=== PATIENT | male | born 2000 | race Caucasian/White ===

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

== ENCOUNTER 2021-12-20 14:43 | Emergency (ER) | payer OTHER ==
[2021-12-20 14:53] VITALS: BP 154/75
[2021-12-20] MEDS ORDERED: KETOROLAC 30 MG/ML VIAL IM STA (15:03)
--- NOTE | 2021-12-20 15:06 | ED Physician Documentation ---
History of Present Illness - Stated complaint Stated Complaint: TWISTED ANKLE - Additonal information Additional information: 21-year-old male presents emergency department for evaluation of acute left ankle injury. He was playing football and went for a large jump. When he lola ded he inverted the ankle. He tried to stand on it but reports that it buckled. No history of previous injury to this ankle or leg. Denies any pertinent past medical history. Review of Systems Constitutional: denies: Fever, Chills Throat: reports: Reviewed and negative Cardiac: reports: Reviewed and negative Respiratory: reports: Reviewed and negative : reports: Reviewed and negative Skin: reports: Reviewed and negative Musculoskeletal: reports: Joint pain PD PAST MEDICAL HISTORY - Past Medical History Endocrine/Autoimmune: None : None - Present Medications Home Medications: Ambulatory Orders Medication Instructions Recorded Confirmed Doxycycline Hyclate 100 mg PO BID #20 capsule 12/29/18 - Allergies Allergies/Adverse Reactions: Allergies Allergy/AdvReac Type Severity Reaction Status Date / Time No Known Drug Allergies Allergy Verified 12/29/18 16:35 PD ED PE EXPANDED - General General: Alert, No acute distress, Well developed/nourished - Extremities Extremities: Left ankle (Significant soft tissue swelling surrounding the lateral malleolus. Normal Achilles. No medial tenderness. Reduced range of motion dorsi and plantar flexion secondary to pain and swelling.) Results - Vitals Vitals: Vital Signs - 24 hr 12/20/21 14:49 Temperature 37.2 C Heart Rate 108 H Respiratory 20 Rate Blood Pressure 154/75 H O2 Saturation 99 Oxygen O2 Source Room air - Rads (name of study) left ankle Radiology: Final report received (No acute fracture. Soft tissue swelling over the lateral malleolus consistent with ligamentous injury) PD MEDICAL DECISION MAKING - ED course Complexity details: reviewed results, re-evaluated patient, considered differential, d/w patient ED course: 21-year-old male presents emergency department for evaluation of acute left lat eral ankle injury sustained while playing football and inverting the injury after jumping. No history of previous injury to this ankle. He presents with significant swelling and ecchymosis to the lateral malleoli are area reduced range of motion secondary to pain. X-ray is negative for obvious fracture. I suspect he has a severe sprain. He is placed in an air splint and given crutches. Discussed RICE precautions. We will follow-up with [facility] in the next week. If not markedly better may benefit from referral to orthopedics. Departure - Departure Disposition: 01 Home, Self Care Clinical Impression: Severe sprain of left ankle Qualifiers: Encounter type: initial encounter Qualified Code(s): S93.402A - Sprain of unspecified ligament of left ankle, initial encounter Condition: Stable Record reviewed to determine appropriate education?: Yes Instructions: ED Sprain Ankle W X Ray Comments: Jorge you are seen today in the emergency department for pain and swelling in your left ankle after landing awkwardly while playing football. The x-ray does not show an acute fracture. However you do have findings consistent with a severe sprain. Please use the air splint when out of bed. Ice the ankle for 10 minutes 2-3 times a day. Please take 600 mg of ibuprofen with food 2-3 times a day for pain. I would like your pain to be modestly improving over the next 7 to 10 days. If not improving you may need to see [facility] for referral to orthopedics. It is important to allow the ankle to heal properly before you return to activity or play as improperly healed sprains can cause persistent pain.
--- NOTE | 2021-12-20 15:12 | XRAY Report ---
PROCEDURE: Ankle 3 View LT INDICATIONS: inversion TECHNIQUE: 3 views of the ankle were acquired. COMPARISON: None FINDINGS: Bones: No fractures or dislocations. Ankle mortise is normally aligned. No suspicious bony lesions . Soft tissues: Soft tissue swelling over the lateral malleolus. Achilles tendon appears normal. IMPRESSION: No fracture. Soft tissue swelling over the lateral malleolus consistent with ligamentous injury. Reviewed by: Minesh Chavez on 12/20/2021 2:10 PM RUDDY Approved by: Minesh Chavez on 12/20/2021 2:10 PM RUDDY Station ID: [id number]
== END 2021-12-20 15:37 | disposition home or self-care (01) ==
LOC: EDUNIT# → EDBD → ED 14:43
DX: S93.402A Sprain of unspecified ligament of left ankle, initial encounter (principal); X50.1XXA Overexertion from prolonged static or awkward postures, initial encounter; Y93.61 Activity, american tackle football
CPT/HCPCS: 96372; 99282; 99284